=== PATIENT | male | born 1975 | race Caucasian/White ===

== ENCOUNTER 2017-12-13 19:49 | Emergency (ER) | payer OTHER ==
[2017-12-13 19:57] VITALS: BP 135/88
--- NOTE | 2017-12-13 20:35 | UC ---
Elbow Pain - HPI Summary HPI Summary: The patient is a 42-year-old male with right elbow pain 3-4 weeks. 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 He was working with pressure on his elbows and leaning on his elbows to install it. He has had swelling and slight redness just proximal to the olecranon. He has limited range of motion of his right elbow. He is right-handed. Is occasionally taking ibuprofen for this - History of Current Complaint Chief Complaint: UCUpperExtremity Stated Complaint: SWOLLEN ELBOW Time Seen by Provider: 12/13/17 19:59 Hx Obtained From: Patient Onset/Duration: Weeks Severity Initially: Moderate Severity Currently: Mild Pain Intensity: 4 Pain Scale Used: 0-10 Numeric Location Of Pain: Is Discrete @ Character: Dull, Aching Aggravating Factor(s): Movement Alleviating Factor(s): Rest Associated Signs And Symptoms: Positive: Swelling, Redness - sl - Allergies/Home Medications Allergies/Adverse Reactions: Allergies Allergy/AdvReac Type Severity Reaction Status Date / Time Penicillins Allergy Rash Verified 12/13/17 19:57 PMH/Surg Hx/FS Hx/Imm Hx Previously Healthy: Yes - Surgical History Surgical History: None - Family History Known Family History: Positive: Hypertension - Social History Alcohol Use: Occasionally Substance Use Type: None Smoking Status (MU): Never Smoked Tobacco Review of Systems Constitutional: Negative Skin: Negative Eyes: Negative ENT: Negative Respiratory: Negative Cardiovascular: Negative Gastrointestinal: Negative Genitourinary: Negative Motor: Negative Neurovascular: Negative Musculoskeletal: Arthralgia Neurological: Negative Psychological: Negative Is Patient Immunocompromised?: No All Other Systems Reviewed And Are Negative: Yes Physical Exam Triage Information Reviewed: Yes Appearance: Well-Appearing, No Pain Distress, Well-Nourished Vital Signs: Initial Vital Signs Temp 97 F 12/13/17 19:54 Pulse 97 12/13/17 19:54 Resp 16 12/13/17 19:54 BP 135/88 12/13/17 19:54 Pulse Ox 97 12/13/17 19:54 Vital Signs Reviewed: Yes Eyes: Positive: Conjunctiva Clear ENT: Positive: Hearing grossly normal. Negative: Nasal congestion, Nasal drainage, Trismus, Muffled voice, Dental tenderness Neck: Positive: Supple, Nontender, No Lymphadenopathy Respiratory: Positive: Lungs clear, Normal breath sounds, No respiratory distress, No accessory muscle use Cardiovascular: Positive: RRR, No Murmur Musculoskeletal: Positive: ROM Limited @ - full extension r elbow/limited flexion, no olecranon bursal fluid Neurological: Positive: Alert Psychological Exam: Normal Skin Exam: Normal Diagnostics - Radiology No standard instances Xray Interpretation: No Acute Changes - olecranon bone spur Radiology Interpretation Completed By: ED Physician Elbow Pain Course/Dx - Differential Dx/Diagnosis Provider Diagnoses: right elbow tendonitis Discharge - Sign-Out/Discharge Documenting (check all that apply): Patient Departure All imaging exams completed and their final reports reviewed: No - Discharge Plan Condition: Stable Disposition: HOME Patient Education Materials: Tendinitis (ED) Referrals: Olegario Noriega MD [Primary Care Provider] - [facility] [Outside] - 4 Days (if not improving get seen in 4-14 days you may need a cortisone shot) Additional Instructions: advil 3-4 4x day with food heat massage official xr report pending you can call for results tomorrow afternoon - Billing Disposition and Condition Condition: STABLE Disposition: Home
--- NOTE | 2017-12-14 07:43 | RAD ---
Indication: Right elbow injury 4 views of the right elbow demonstrates no fracture. No joint effusion is noted although suboptimal positioning. IMPRESSION: Unremarkable right elbow. R0
--- NOTE | 2017-12-14 08:43 | UC ---
- Progress Note Progress Note: Patient Name: DAVID PELLETIER Medical Record#: [id number] Ordering Physician: Erick Whitlock MD Acct.#: [id number] : 1975 Age: 42 Sex: M Location: [facility] Exam Date: 12/13/172004 ADM Status: DEP ER Order Information: ELBOW RIGHT 3+ VWS Accession Number: [id number] CPT: 96661 Indication: Right elbow injury 4 views of the right elbow demonstrates no fracture. No joint effusion is noted although suboptimal positioning. IMPRESSION: Unremarkable right elbow. R0 <Electronically signed by Erica Garcia MD in OV> 12/14/17738 Dictated By: Erica Garcia MD Dictated Date/Time: 12/14/17738 Transcribed Date/Time: 12/14/17738 Copy to: CC:Olegario Noriega MD; Erick Whitlock MD [facility] - [facility] [address] [place] [address] ph ([phone]) ph ([phone]) ph ([phone]) This report is only to be considered final once signed by the Provider(s) as displayed in the "<Electronically Signed by >" field (s). Absence of a signature indicates the report is in a draft status and still needs to be finalized. In the event this document was created by someone other than the signing Provider, the individual initiating the document will be listed in the "Entered by:" or "Dictated by:" cavazos. 1 of 1 Discharge - Sign-Out/Discharge Documenting (check all that apply): Post-Discharge Follow Up All imaging exams completed and their final reports reviewed: Yes - Discharge Plan Condition: Stable Disposition: HOME Patient Education Materials: Tendinitis (ED) Referrals: [facility] [Outside] - 4 Days (if not improving get seen in 4-14 days you may need a cortisone shot) Olegario Noriega MD [Primary Care Provider] - Additional Instructions: advil 3-4 4x day with food heat massage official xr report pending you can call for results tomorrow afternoon - Billing Disposition and Condition Condition: STABLE Disposition: Home
== END 2017-12-13 20:40 | disposition home or self-care (01) ==
LOC: UCEAST 19:49
DX: M77.9 Enthesopathy, unspecified (principal); M25.521 Pain in right elbow; Z88.0 Allergy status to penicillin
CPT/HCPCS: 99201; G0463